=== PATIENT | male | born 1990 | race Caucasian/White ===

== ENCOUNTER 2017-01-18 19:12 | Emergency (ER) | payer BC ==
[~2017-01-18] VITALS: Ht 177.8 cm; Wt 80.0 kg
[2017-01-18] MEDS ORDERED: ADACEL/BOOSTRIX VACCINE (DIPHTH/PERTUSS/ACELL/TETANUS)0.5ML SYR (90715) IM ONE (21:15)
[2017-01-18 22:22] VITALS: BP 140/80
--- NOTE | 2017-01-19 09:41 | REP ---
Clinical: Trauma. Technique: AP, lateral, bilateral oblique views left hand . Findings: The osseous structures and joint spaces are intact and normal. There is no evidence for acute fracture or dislocation. Surrounding soft tissues are unremarkable. No subcutaneous emphysema or radiodense foreign body. Impression: Normal examination . No acute fracture or dislocation. Signed by Satish Loear MD 01/19/2017 09:33 A
--- NOTE | 2017-01-19 09:46 | REP ---
Clinical: Pain with recent trauma . Technique: Internal rotation, external rotation, and Y view. Findings: No acute fracture or dislocation. The acromioclavicular and glenohumeral joints are intact. No periarticular calcifications or degenerative changes are appreciated. Sub acromial space is normal. Surrounding soft tissues are unremarkable. Impression: Normal right shoulder radiographs. Signed by Satish Loera MD 01/19/2017 09:37 A
== END 2017-01-18 22:25 | disposition home or self-care (01) ==
LOC: M ED 19:12
DX: S61.012A Laceration without foreign body of left thumb without damage to nail, initial encounter (principal); S40.011A Contusion of right shoulder, initial encounter; W01.198A Fall on same level from slipping, tripping and stumbling with subsequent striking against other object, initial encounter; Y92.099 Unspecified place in other non-institutional residence as the place of occurrence of the external cause; Y93.89 Activity, other specified; Y99.9 Unspecified external cause status